=== PATIENT | female | born 1995 | race Caucasian/White ===

== ENCOUNTER 2021-08-16 03:23 | Observation (INO) | payer OTHER, MEDICAID ==
[2021-08-16 04:14] VITALS: O2SAT 98
[2021-08-16 05:25] VITALS: BP 133/73
[2021-08-16 05:26] VITALS: PULSE 95
== END 2021-08-16 05:00 | disposition home or self-care (01) ==
LOC: OB 03:23
PROVIDERS: ADMIT Obstetrics & Gynecology; ATTEND Obstetrics & Gynecology
DX: Z34.03 Encounter for supervision of normal first pregnancy, third trimester (principal); Z3A.37 37 weeks gestation of pregnancy
CPT/HCPCS: G0378

== ENCOUNTER 2021-08-16 17:34 | Inpatient (IN) | payer OTHER, MEDICAID ==
[2021-08-16] MEDS ORDERED: XYLOCAINE 1% HCL 20 ML MDV IJ PRN (18:57)
[2021-08-16] MEDS ORDERED: PITOCIN 30 UNITS/ LR 500 ML 30 UNITS/500 ML PLAST..BAG IV SCH (19:00)
[2021-08-16 19:14] LABS: Absolute Neutrophil Ct (ANC) 11.29 (1.4-6.9); Basophil (Absolute #) 0.02 (0-0.4); Eosinophil % 0.1 % (0.00-5.0); Eosinophil (Absolute #) 0.01 (0-0.5); Hematocrit 32.4 % (35-47); Hemoglobin 9.2 gm/dl (12.0-16.0); Lymphocyte (Absolute #) 1.08 (1.0-4.6); Lymphocytes % 8.3 % (24.0-44.0); Mean Cell Volume 71.2 fl (78-100); Mean Corpuscular Hemoglobin 20.2 pg (26-32); Mean Corpuscular Hgb Concent. 28.4 g/dl (32-36); Monocyte (Absolute #) 0.58 (0.0-1.3); Monocytes % 4.5 % (0.0-12.0); Neutrophil % 86.9 % (36.0-66.0); Platelet Count 215 K/mm3 (150-450); Red Blood Count 4.55 M/mm3 (4.1-5.4); Red Cell Distribution Width 19.2 % (11.5-14.0)
[2021-08-16 19:29] LABS: Amphetamine,Urine NEGATIVE (NEGATIVE); Barbiturate,Urine NEGATIVE (NEGATIVE); Benzodiazepine,Urine NEGATIVE (NEGATIVE); Cocaine,Urine NEGATIVE (NEGATIVE); Methadone,Urine NEGATIVE (NEGATIVE); Opiate,Urine NEGATIVE (NEGATIVE); PCP,Urine NEGATIVE (NEGATIVE); THC,Urine NEGATIVE (NEGATIVE)
--- NOTE | 2021-08-16 20:02 | XRAY ---
Exam: OB follow-up ultrasound from 08/16/2021. Comparison: OB ultrasound greater than 14 weeks from 04/20/2021. Indication: weight. Findings: Transabdominal scans reveal a single live intrauterine fetus in the cephalic lie. cardiac activity measured 133 beats per minute. The placenta is partially seen and appears to be anterior, as noted on the prior exam from 04/20/2021. The amniotic fluid index measures 18.45 cm which is within normal limits. biometry: The biparietal diameter measures 9.32 cm consistent with a gestational age of 37 weeks, 6 days. Head circumference measures 33.48 cm consistent with a gestational age of 38 weeks, 2 days. The abdominal circumference measures 34.52 cm consistent with a gestational age of 38 weeks, 3 days. The femur length measures 7.35 cm consistent with a gestational age of 37 weeks, 4 days. Average gestational age based on all of the above measurements is 38 weeks, 0 days plus or -2 weeks, 5 days yielding an estimated due date of 08/30/2021. This is 4 days behind that anticipated by the prior OB ultrasound from 04/20/2021 and is within normal range of variability. Estimated due date by dates is 09/03/2021. Estimated weight is 3412 g plus or -511.84 g (7 pounds, 8 oz.+ or -1 pound, 2 ounces). This places the fetus in the 77.1 percentile. size ratios are all within normal limits. The maternal cervical canal was not measured by the radiologic technologist chief. Impression: 1. biometry measurements suggest a gestational age of 38 weeks, 0 days plus or -2 weeks, 5 days which is only 4 days behind that anticipated by the prior OB ultrasound from 04/20/2021. See above. 2. Estimated weight is 3412 g plus or -511.84 g (7 pounds, 8 oz.+ or -1 pound, 2 ounces) placing the fetus in the 77.1 percentile. 3. The placenta is partially seen and again appears to be anterior. 4. The fetus is in the cephalic lie and demonstrates a heart rate of 133 bpm. 5. Amniotic fluid index measures 18.45 cm which is within normal limits.
[2021-08-16] MEDS: Lactated Ringers 1,000 ML IV SCH (20:20)
[2021-08-16] MEDS ORDERED: Ephedrine Sulfate 50 MG/ML IV PRN (20:25)
[2021-08-16] MEDS ORDERED: Lactated Ringers 1,000 ML IV ONE (20:25)
[2021-08-16] MEDS ORDERED: FENTANYL 2 MCG-BUPIV 0.125%-NS 250 ML Epidur 250 ML EPIDURAL SCH (20:30)
[2021-08-16] MEDS ORDERED: Pepcid 20 MG PO ONE (22:00)
[2021-08-16] MEDS ORDERED: Ambien 5 MG Tablet PO PRN (22:55)
[2021-08-17] MEDS: Lactated Ringers 1,000 ML IV SCH ×2 (01:22→04:41)
[2021-08-17 04:08] LABS: Slide Review 1 YES
[2021-08-17] MEDS ORDERED: Lactated Ringers 1,000 ML IV ONE (07:56)
[2021-08-17] MEDS ORDERED: TRANDATE 20 MG/4 ML SYRINGE IV ONE (07:56)
[2021-08-17] MEDS ORDERED: Pitocin 10 UNITS/ML IV ONE (07:56)
[2021-08-17] MEDS ORDERED: Versed 2 MG/2 ML Injection IV ONE (07:56)
[2021-08-17] MEDS ORDERED: Marcaine 0.5%/Epinephrine 10 ML IJ ONE (07:56)
[2021-08-17] MEDS ORDERED: SUBLIMAZE 100 MCG/2 ML IV ONE (07:56)
[2021-08-17] MEDS ORDERED: Astramorph-Pf 5 MG/10 ML IJ ONE (07:56)
[2021-08-17] MEDS ORDERED: Marcaine MPF 0.25% 30 ML EPIDURAL ONE (08:20)
[2021-08-17] MEDS ORDERED: Dermoplast Spray TP PRN (08:23)
[2021-08-17] MEDS ORDERED: LANSINOH 40 GM TOP PRN (08:23)
[2021-08-17] MEDS ORDERED: TUCKS TP PRN (08:23)
[2021-08-17] MEDS ORDERED: Sensorcaine 0.25% 10 ML EPIDURAL PRN (08:25)
[2021-08-17] MEDS ORDERED: PERCOCET TABLET 5/325MG PO PRN (10:03)
[2021-08-17] MEDS ORDERED: Narcan 0.4 MG/ML IV PRN (10:03)
[2021-08-17] MEDS ORDERED: MORPHINE SULFATE 2 MG INJ IV PRN (10:03)
[2021-08-17] MEDS ORDERED: Zofran 4 MG/2 ML VIAL IV PRN (10:03)
[2021-08-17] MEDS ORDERED: CLARITIN 10 MG PO PRN (10:03)
[2021-08-17] MEDS ORDERED: HOLD NARCOTIC ANALGESICS AND SEDATIVES X24 HR MC PRN (10:03)
[2021-08-17] MEDS ORDERED: BENADRYL 50 MG/ML IV PRN (10:03)
[2021-08-17] MEDS ORDERED: Nubain 10 MG/ML IV PRN (10:03)
[2021-08-17] MEDS ORDERED: DEMEROL 50 MG IV PRN (10:03)
[2021-08-17] MEDS ORDERED: KEFZOL 1 GM** 3 G in Sodium Chloride 0.9% 50 ML 50 ML IV SCH (10:15)
[2021-08-17] MEDS ORDERED: Reglan 10 MG/2 ML IV SCH (10:15)
[2021-08-17] MEDS ORDERED: Pepcid 20 MG VIAL IV SCH (10:15)
[2021-08-17] MEDS ORDERED: SOD CITRATE-CITRIC ACID SOLN PO SCH (10:15)
[2021-08-17] MEDS ORDERED: Dextrose 5%-Lr IV Solution 1000 ML 1,000 ML IV SCH (10:30)
[2021-08-17] MEDS ORDERED: Zithromax 500 MG/ 250 ML NaCl Premix 500 MG/250 ML IVPB IV SCH (10:30)
[2021-08-17 10:36] LABS: INR 1.01 (0.8-3.0); PROTIME 11.9 SECONDS (9.4-12.5)
[2021-08-17 10:39] LABS: PTT 24.5 SECONDS (25.1-36.5)
[2021-08-17 18:18] LABS: Hematocrit 25.5 % (35-47); Hemoglobin 7.2 gm/dl (12.0-16.0); Mean Cell Volume 72.4 fl (78-100); Mean Corpuscular Hemoglobin 20.5 pg (26-32); Mean Corpuscular Hgb Concent. 28.2 g/dl (32-36); Mean Platelet Volume 11.8 fl (7.5-11.0); Platelet Count 219 K/mm3 (150-450); Red Blood Count 3.52 M/mm3 (4.1-5.4); Red Cell Distribution Width 18.9 % (11.5-14.0); White Blood Count 21.6 K/mm3 (4.0-10.5)
[2021-08-17] MEDS: KEFZOL 1 GM** 3 G in Sodium Chloride 0.9% 50 ML 50 ML IV SCH (19:26)
[2021-08-17] MEDS: Sodium Chloride 0.9% 1000 ML 1,000 ML IV SCH (20:10)
[2021-08-17] MEDS: TYLENOL EXTRA STRENGTH 500 MG PO PRN (20:41)
[2021-08-17 21:29] LABS: Slide Review YES
[2021-08-17] MEDS ORDERED: Docusate Sodium 100 MG ONE (22:58)
[2021-08-17] MEDS: Docusate Sodium 100 MG PO SCH (22:59)
[2021-08-18] MEDS ORDERED: Lactated Ringers 1,000 ML IV ONE (00:16)
[2021-08-18 01:43] LABS: Hematocrit 29.8 % (35-47); Hemoglobin 8.9 gm/dl (12.0-16.0); Mean Cell Volume 75.8 fl (78-100); Mean Corpuscular Hemoglobin 22.6 pg (26-32); Mean Corpuscular Hgb Concent. 29.9 g/dl (32-36); Mean Platelet Volume 10.4 fl (7.5-11.0); Platelet Count 165 K/mm3 (150-450); Red Blood Count 3.93 M/mm3 (4.1-5.4); White Blood Count 18.1 K/mm3 (4.0-10.5)
[2021-08-18] MEDS: KEFZOL 1 GM** 3 G in Sodium Chloride 0.9% 50 ML 50 ML IV SCH (04:00)
[2021-08-18 06:25] LABS: ALBUMIN 2.4 g/dL (3.5-5.0); ALKALINE PHOSPHATASE 273 U/L (38-126); ANION GAP 8.1 MEQ/L (5-15); BLOOD UREA NITROGEN 11 mg/dL (7-17); CHLORIDE 103 mmol/L (98-107); Carbon Dioxide 24 mmol/L (22-30); Creatinine 1 0.81 mg/dL (0.52-1.04); EST GLOMERULAR FILTRATION RATE > 60.0 ML/MIN; Glucose 102 mg/dL (74-106); Potassium 3.9 mmol/L (3.5-5.1); SGOT/AST 41 U/L (14-36); SGPT/ALT 14 U/L (0-35); SODIUM 131 mmol/L (137-145)
[2021-08-18 06:28] LABS: Absolute Neutrophil Ct (ANC) 13.99 (1.4-6.9); Basophil (Absolute #) 0.01 (0-0.4); Eosinophil % 0.2 % (0.00-5.0); Eosinophil (Absolute #) 0.03 (0-0.5); Hematocrit 28.2 % (35-47); Hemoglobin 8.6 gm/dl (12.0-16.0); Lymphocytes % 8.9 % (24.0-44.0); Mean Cell Volume 74.8 fl (78-100); Mean Corpuscular Hemoglobin 22.8 pg (26-32); Mean Corpuscular Hgb Concent. 30.5 g/dl (32-36); Monocytes % 7.7 % (0.0-12.0); Neutrophil % 83.1 % (36.0-66.0); Platelet Count 175 K/mm3 (150-450); Red Blood Count 3.77 M/mm3 (4.1-5.4); Red Cell Distribution Width 21.2 % (11.5-14.0); White Blood Count 16.8 K/mm3 (4.0-10.5)
--- NOTE | 2021-08-18 07:36 | PCM.NOTE ---
Date and Time: 08/18/21 0733 Subjective Assessment: pod 1 sp csection pt resting in bed and doing well. ambulating and tolerating diet vss afebrile abd; soft incision with dressing intact with minimal soiling uterus; firm lochia; mild hgb; 8.6 a/p sp csection pod 1 will repeat cbc at noon today encourage ambulation OBJECTIVE DATA Vital Signs: Vital Signs - 24 hr Temp Pulse Resp BP BP Pulse Ox 08/18/21 06:55 99 H 94 L 08/18/21 06:00 100 08/18/21 05:00 96 08/18/21 04:00 98.6 F 108 H 18 134/72 99 08/18/21 03:00 100 08/18/21 02:00 100 08/18/21 01:00 98.4 F 104 H 18 141/63 100 08/18/21 00:00 98.7 F 98 H 18 141/67 100 08/17/21 23:00 100 08/17/21 22:00 100 08/17/21 21:00 100 08/17/21 20:00 98.8 F 99 H 20 137/68 100 08/17/21 19:33 98.6 F 20 L 20 129/76 100 08/17/21 19:00 100 08/17/21 18:00 100 08/17/21 17:00 100 08/17/21 16:15 98.4 F 95 H 18 123/59 100 08/17/21 16:00 100 08/17/21 15:45 98.4 F 88 18 122/58 100 08/17/21 15:30 98.4 F 107 H 18 121/58 100 08/17/21 15:00 98.4 F 106 H 18 120/57 99 08/17/21 14:45 98.7 F 106 H 20 106/55 100 08/17/21 14:30 98.7 F 101 H 20 120/55 100 08/17/21 14:15 98.7 F 113 H 20 120/55 100 08/17/21 14:00 98.7 F 93 H 18 141/74 100 08/17/21 11:10 98.7 F 106 H 20 100 08/17/21 10:31 98.7 F 94 H 20 134/63 100 08/17/21 10:15 98.7 F 92 H 20 132/67 08/17/21 10:00 98.7 F 92 H 20 143/85 08/17/21 09:45 98.7 F 102 H 20 116/54 08/17/21 09:30 98.7 F 85 20 133/60 08/17/21 09:15 98.7 F 94 H 20 140/69 100 08/17/21 09:00 98.7 F 88 20 123/59 100 08/17/21 08:45 98.7 F 86 20 134/65 100 08/17/21 08:30 98.7 F 100 H 20 125/61 100 08/17/21 08:15 98.7 F 81 20 135/68 100 08/17/21 08:00 98.7 F 109 H 20 140/66 96 08/17/21 07:45 98.7 F 109 H 20 161/61 96 Pain Assessment - Last Documented Pain Intensity [Bilateral 7 Lower] Pain Intensity [Anterior/ 7 Posterior] Pain Intensity 0 Pain Scale Used 0-10 Pain Scale Intake and Output: Intake & Output 08/15/21 08/16/21 08/17/21 08/18/21 11:59 11:59 11:59 11:59 Intake Total 3577 3950 Output Total 500 2475 Balance 3077 1475 Weight 127.006 kg Lab Results: Lab Results-Last 24 Hours 08/16/21 08/16/21 08/17/21 Range/Units 11:31 11:31 10:27 WBC (4.0-10.5) K/mm3 RBC (4.1-5.4) M/mm3 Hgb (12.0-16.0) gm/dl Hct (35-47) % MCV (78-100) fl MCH (26-32) pg MCHC (32-36) g/dl RDW (11.5-14.0) % Plt Count (150-450) K/mm3 MPV (7.5-11.0) fl Gran % (36.0-66.0) % Eos # (Auto) (0-0.5) Absolute Lymphs (auto) (1.0-4.6) Absolute Monos (auto) (0.0-1.3) Lymphocytes % (24.0-44.0) % Monocytes % (0.0-12.0) % Eosinophils % (0.00-5.0) % Basophils % (0.0-0.4) % Absolute Granulocytes (1.4-6.9) Basophils # (0-0.4) PT 11.9 (9.4-12.5) SECONDS INR 1.01 (0.8-3.0) APTT 24.5 L (25.1-36.5) SECONDS Sodium (137-145) mmol/L Potassium (3.5-5.1) mmol/L Chloride (98-107) mmol/L Carbon Dioxide (22-30) mmol/L Anion Gap (5-15) MEQ/L BUN (7-17) mg/dL Creatinine (0.52-1.04) mg/dL Estimated GFR ML/MIN Glucose (74-106) mg/dL Calcium (8.4-10.2) mg/dL Total Bilirubin (0.2-1.3) mg/dL AST (14-36) U/L ALT (0-35) U/L Alkaline Phosphatase (38-126) U/L Serum Total Protein (6.3-8.2) g/dL Albumin (3.5-5.0) g/dL Slides for Path Review Crossmatch COMPATIBLE COMPATIBLE (COMPATIBLE) 08/17/21 08/18/21 08/18/21 Range/Units 18:11 01:40 06:14 WBC 21.6 H 18.1 H 16.8 H (4.0-10.5) K/mm3 RBC 3.52 L 3.93 L 3.77 L (4.1-5.4) M/mm3 Hgb 7.2 L D 8.9 L D 8.6 L (12.0-16.0) gm/dl Hct 25.5 L 29.8 L 28.2 L (35-47) % MCV 72.4 L 75.8 L 74.8 L (78-100) fl MCH 20.5 L 22.6 L 22.8 L (26-32) pg MCHC 28.2 L 29.9 L 30.5 L (32-36) g/dl RDW 18.9 H 22.0 H 21.2 H (11.5-14.0) % Plt Count 219 165 175 (150-450) K/mm3 MPV 11.8 H 10.4 11.0 (7.5-11.0) fl Gran % 83.1 H (36.0-66.0) % Eos # (Auto) 0.03 (0-0.5) Absolute Lymphs (auto) 1.50 (1.0-4.6) Absolute Monos (auto) 1.30 (0.0-1.3) Lymphocytes % 8.9 L (24.0-44.0) % Monocytes % 7.7 (0.0-12.0) % Eosinophils % 0.2 (0.00-5.0) % Basophils % 0.1 (0.0-0.4) % Absolute Granulocytes 13.99 H (1.4-6.9) Basophils # 0.01 (0-0.4) PT (9.4-12.5) SECONDS INR (0.8-3.0) APTT (25.1-36.5) SECONDS Sodium (137-145) mmol/L Potassium (3.5-5.1) mmol/L Chloride (98-107) mmol/L Carbon Dioxide (22-30) mmol/L Anion Gap (5-15) MEQ/L BUN (7-17) mg/dL Creatinine (0.52-1.04) mg/dL Estimated GFR ML/MIN Glucose (74-106) mg/dL Calcium (8.4-10.2) mg/dL Total Bilirubin (0.2-1.3) mg/dL AST (14-36) U/L ALT (0-35) U/L Alkaline Phosphatase (38-126) U/L Serum Total Protein (6.3-8.2) g/dL Albumin (3.5-5.0) g/dL Slides for Path Review YES Crossmatch (COMPATIBLE) 08/18/21 Range/Units 06:14 WBC (4.0-10.5) K/mm3 RBC (4.1-5.4) M/mm3 Hgb (12.0-16.0) gm/dl Hct (35-47) % MCV (78-100) fl MCH (26-32) pg MCHC (32-36) g/dl RDW (11.5-14.0) % Plt Count (150-450) K/mm3 MPV (7.5-11.0) fl Gran % (36.0-66.0) % Eos # (Auto) (0-0.5) Absolute Lymphs (auto) (1.0-4.6) Absolute Monos (auto) (0.0-1.3) Lymphocytes % (24.0-44.0) % Monocytes % (0.0-12.0) % Eosinophils % (0.00-5.0) % Basophils % (0.0-0.4) % Absolute Granulocytes (1.4-6.9) Basophils # (0-0.4) PT (9.4-12.5) SECONDS INR (0.8-3.0) APTT (25.1-36.5) SECONDS Sodium 131 L (137-145) mmol/L Potassium 3.9 (3.5-5.1) mmol/L Chloride 103 (98-107) mmol/L Carbon Dioxide 24 (22-30) mmol/L Anion Gap 8.1 (5-15) MEQ/L BUN 11 (7-17) mg/dL Creatinine 0.81 (0.52-1.04) mg/dL Estimated GFR > 60.0 ML/MIN Glucose 102 (74-106) mg/dL Calcium 8.0 L (8.4-10.2) mg/dL Total Bilirubin 0.80 (0.2-1.3) mg/dL AST 41 H (14-36) U/L ALT 14 (0-35) U/L Alkaline Phosphatase 273 H (38-126) U/L Serum Total Protein 5.0 L (6.3-8.2) g/dL Albumin 2.4 L (3.5-5.0) g/dL Slides for Path Review Crossmatch (COMPATIBLE) Radiology Exams: Radiology Procedures Category Date Time Status OB FOLLOW UP PER FETUS [US] Stat Exams 08/16/21 19:31 Completed Multi-Disciplinary Progress Notes: Multi-Disciplinary Progress Notes 08/17/21 14:11 Respiratory Note by Tanya Medina Baby delivered by . Baby crying from and pinked up. Baby dried and stimulated under the warmer. Initialized on 08/17/21 14:11 - END OF NOTE Assessment/Plan (1) Arrest of descent, delivered, current hospitalization Current Visit: Yes Status: Acute Code(s): O62.1 - SECONDARY UTERINE INERTIA (2) History of primary section Current Visit: Yes Status: Acute Code(s): Z98.891 - HISTORY OF UTERINE SCAR FROM PREVIOUS SURGERY (3) Status post primary low transverse section Current Visit: Yes Status: Acute Code(s): Z98.891 - HISTORY OF UTERINE SCAR FROM PREVIOUS SURGERY (4) Postoperative anemia due to acute blood loss Current Visit: Yes Status: Acute Code(s): D62 - ACUTE POSTHEMORRHAGIC ANEMIA
[2021-08-18] MEDS ORDERED: OFIRMEV 100 ML IV ONE (07:56)
[2021-08-18] MEDS: Docusate Sodium 100 MG PO SCH (08:01)
[2021-08-18] MEDS: ENOXAPARIN SODIUM SQ SCH (08:01)
[2021-08-18] MEDS ORDERED: Adacel Vial IM ONE (08:23)
[2021-08-18] MEDS ORDERED: Sodium Chloride 0.9% 1000 ML 1,000 ML IV SCH (08:30)
[2021-08-18] MEDS: Sodium Chloride 0.9% 1000 ML 1,000 ML IV SCH (09:24)
[2021-08-18] MEDS: FEOSOL 325 MG PO SCH (09:25)
[2021-08-18] MEDS ORDERED: FERREX 150 PO SCH (10:00)
--- NOTE | 2021-08-18 10:43 | OP ---
SURGERY DATE/TIME: 08/17/2021 1201 PREOPERATIVE DIAGNOSIS: Intrauterine at 37 weeks and 4 days gestation with arrest of descent and dilatation in labor and chronic hypertension. POSTOPERATIVE DIAGNOSIS: Intrauterine at 37 weeks and 4 days gestation with arrest of descent and dilatation in labor and chronic hypertension. PROCEDURE: Primary section, low flap transverse uterine incision, Pfannenstiel skin incision. SURGEON: Lei Junior D.O. PLANT SUPERVISOR: Troy Mark, surgical services coordinator. ANESTHESIA: Epidural. ESTIMATED BLOOD LOSS: 400 cc. COMPLICATIONS: None. INDICATIONS: The risks, benefits, indications and alternatives of the procedure were reviewed with the patient prior to procedure. The patient understood the risk of infection, bleeding, bowel injury, bladder injury, ureteral injury, uterine perforation, pelvic infection and thromboembolic disorder associated with the surgery and desires to have the surgery as a possible means to alleviate her current medical condition. DESCRIPTION OF PROCEDURE AND FINDINGS: At this point the patient is taken to the operating room where her epidural anesthesia was found to be adequate. She was then prepared and draped in normal sterile fashion in the dorsal supine position with a leftward tilt. A Pfannenstiel skin incision is made with a scalpel and carried through to the underlying layer of the fascia with Bovie. The fascia was then incised in the midline and the incision extended laterally with Rolon scissors. The superior aspect of the fascial incision was then grasped John clamps elevated and the underlying rectus muscles dissected off bluntly. Attention is then turned to the inferior aspect of this incision which in similar fashion was grasped, tented up with John clamps and the rectus muscles dissected off bluntly. The rectus muscles were then at the midline and the peritoneum identified tented up and entered sharply with Metzenbaum scissors. The peritoneal incision was then extended superiorly and inferiorly with good visualization of the bladder. The bladder blade was then inserted and the vesicouterine peritoneum identified, grasped with pickups and entered sharply with Metzenbaum scissors. This incision was then extended laterally and bladder flap created digitally. The bladder blade was then reinserted and the lower uterine segment incised in transverse fashion with a scalpel. The uterine incision was then extended laterally with Rolon scissors. The bladder blade was then removed. The 's head was delivered atraumatically. The nose and mouth were suctioned with bulb suction and the cord clamped and cut. The infant was then handed off to awaiting nurses. The placenta was then removed manually. The uterus exteriorized and cleared of all clots and debris. The uterine incision was repaired with 1-0 chromic in a running locked fashion. A second layer of the same suture was used to obtain excellent hemostasis. The uterus is then returned to the abdomen. The gutters were cleared of clots and the peritoneal muscle closed in interrupted fashion using 2-0 chromic suture. The fascia was re-approximated with 0 Vicryl in a running fashion. The subcutaneous layer was closed with 3-0 Vicryl suture and the skin was closed with absorbable nancy called INSORB. The patient tolerated the procedure well. Sponge, lap, needle and instrument counts were correct x2. The patient was then taken to the recovery room in stable condition. The patient delivered a live baby boy at 1224 hours, weight of the baby was 10 pounds 2 ounces and 's were 8 at 1 minute and 9 at 5 minutes.
[2021-08-18 12:11] LABS: Slide Review 1 YES
[2021-08-18] MEDS ORDERED: Mylicon 80MG ONE (12:32)
[2021-08-18] MEDS: MOTRIN 400 MG PO PRN (12:36)
[2021-08-18] MEDS ORDERED: Mylicon 80MG PO PRN (12:39)
[2021-08-18 13:11] LABS: Hemoglobin 9.2 gm/dl (12.0-16.0); Mean Cell Volume 75.2 fl (78-100); Mean Corpuscular Hemoglobin 22.3 pg (26-32); Mean Corpuscular Hgb Concent. 29.7 g/dl (32-36); Platelet Count 213 K/mm3 (150-450); Red Blood Count 4.12 M/mm3 (4.1-5.4); Red Cell Distribution Width 21.6 % (11.5-14.0); White Blood Count 18.6 K/mm3 (4.0-10.5)
[2021-08-18 13:33] LABS: ALBUMIN 2.7 g/dL (3.5-5.0); ALKALINE PHOSPHATASE 280 U/L (38-126); ANION GAP 9.8 MEQ/L (5-15); BLOOD UREA NITROGEN 8 mg/dL (7-17); CHLORIDE 104 mmol/L (98-107); Calcium 8.2 mg/dL (8.4-10.2); Carbon Dioxide 26 mmol/L (22-30); Creatinine 1 0.68 mg/dL (0.52-1.04); EST GLOMERULAR FILTRATION RATE > 60.0 ML/MIN; Glucose 107 mg/dL (74-106); Potassium 4.1 mmol/L (3.5-5.1); SGOT/AST 44 U/L (14-36); SGPT/ALT 17 U/L (0-35); SODIUM 135 mmol/L (137-145); Total Protein 5.5 g/dL (6.3-8.2)
[2021-08-18 13:49] LABS: HBsAg Screen Negative (Negative)
[2021-08-18] MEDS: PIPERACILLIN/TAZOBACTAM 3.375 GM in Sodium Chloride 100ML MINI-BAG PLUS 100 ML IV SCH ×2 (14:20→20:01)
--- NOTE | 2021-08-18 16:20 | PCM.DS ---
Discharge Summary Date of Admission: 08/16/21 17:34 Admitting Physician: MIKI ROLON DO Consults: Consults on Case 08/16/21 20:25 Notify Anesthesia Provider PRN 08/17/21 10:04 Notify Anesthesia Provider PRN Notify Anesthesia Provider ROUTINE Notify Physician OF ADMISSION 08/17/21 16:16 Navigation ONCE Primary Care Provider: GREG MONACO Allergies Allergies No Known Drug Allergies Allergy (Verified 08/16/21 03:45) Hospital Summary - Hospital Course Hospital Course: pt was admitted on august 16 for being in labor at 37 3/7 wks gestation who was scheduled for csection on for suspected macrosomia and chronic htn. pt had sonogram in labor delivery on august 16 while in labor and baby was noted to being about 7 pounds 8 oz. pt progressed to complete dilitation however had an arrest of descent. pt subsequently underwent csection and delivered live baby boy without complication however had an ebl of 1000cc. pt was subsequently transfursed 2 units of prbc upon seeing her hgb to 7.2. posttransfusion hgb 9.0. pt currently feeling well and stable for discharge on august 19. pt given norco for pain management and was advised to fu in office in 2 wks. pt received additional zosyn antibiotic when wbc went to 18.6 secondary to elevated bmi. all questions answered to her satisfaction. - Vitals & Intake/Output Vital Signs: Vital Signs Temperature 98.5 F 08/18/21 14:00 Pulse Rate 110 H 08/18/21 14:00 Respiratory Rate 18 08/18/21 14:00 Blood Pressure 138/71 08/18/21 14:00 O2 Sat by Pulse Oximetry 97 08/18/21 11:00 Intake & Output: Intake & Output 08/16/21 08/17/21 08/18/21 08/19/21 11:59 11:59 11:59 11:59 Intake Total 3577 3950 Output Total 500 3325 Balance 3077 625 Weight 127.006 kg - Lab Result Diagrams: 08/18/21 13:06 08/18/21 13:06 Lab Results-Last 24 Hrs: Lab Results-Last 24 Hours 08/16/21 08/16/21 08/17/21 Range/Units 11:31 11:31 10:27 WBC (4.0-10.5) K/mm3 RBC (4.1-5.4) M/mm3 Hgb (12.0-16.0) gm/dl Hct (35-47) % MCV (78-100) fl MCH (26-32) pg MCHC (32-36) g/dl RDW (11.5-14.0) % Plt Count (150-450) K/mm3 MPV (7.5-11.0) fl Gran % (36.0-66.0) % Eos # (Auto) (0-0.5) Absolute Lymphs (auto) (1.0-4.6) Absolute Monos (auto) (0.0-1.3) Lymphocytes % (24.0-44.0) % Monocytes % (0.0-12.0) % Eosinophils % (0.00-5.0) % Basophils % (0.0-0.4) % Absolute Granulocytes (1.4-6.9) Basophils # (0-0.4) Sodium (137-145) mmol/L Potassium (3.5-5.1) mmol/L Chloride (98-107) mmol/L Carbon Dioxide (22-30) mmol/L Anion Gap (5-15) MEQ/L BUN (7-17) mg/dL Creatinine (0.52-1.04) mg/dL Estimated GFR ML/MIN Glucose (74-106) mg/dL Calcium (8.4-10.2) mg/dL Total Bilirubin (0.2-1.3) mg/dL AST (14-36) U/L ALT (0-35) U/L Alkaline Phosphatase (38-126) U/L Serum Total Protein (6.3-8.2) g/dL Albumin (3.5-5.0) g/dL Hep Bs Antigen Negative (Negative) Slides for Path Review Crossmatch COMPATIBLE COMPATIBLE (COMPATIBLE) 08/17/21 08/18/21 08/18/21 Range/Units 18:11 01:40 06:14 WBC 21.6 H 18.1 H 16.8 H (4.0-10.5) K/mm3 RBC 3.52 L 3.93 L 3.77 L (4.1-5.4) M/mm3 Hgb 7.2 L D 8.9 L D 8.6 L (12.0-16.0) gm/dl Hct 25.5 L 29.8 L 28.2 L (35-47) % MCV 72.4 L 75.8 L 74.8 L (78-100) fl MCH 20.5 L 22.6 L 22.8 L (26-32) pg MCHC 28.2 L 29.9 L 30.5 L (32-36) g/dl RDW 18.9 H 22.0 H 21.2 H (11.5-14.0) % Plt Count 219 165 175 (150-450) K/mm3 MPV 11.8 H 10.4 11.0 (7.5-11.0) fl Gran % 83.1 H (36.0-66.0) % Eos # (Auto) 0.03 (0-0.5) Absolute Lymphs (auto) 1.50 (1.0-4.6) Absolute Monos (auto) 1.30 (0.0-1.3) Lymphocytes % 8.9 L (24.0-44.0) % Monocytes % 7.7 (0.0-12.0) % Eosinophils % 0.2 (0.00-5.0) % Basophils % 0.1 (0.0-0.4) % Absolute Granulocytes 13.99 H (1.4-6.9) Basophils # 0.01 (0-0.4) Sodium (137-145) mmol/L Potassium (3.5-5.1) mmol/L Chloride (98-107) mmol/L Carbon Dioxide (22-30) mmol/L Anion Gap (5-15) MEQ/L BUN (7-17) mg/dL Creatinine (0.52-1.04) mg/dL Estimated GFR ML/MIN Glucose (74-106) mg/dL Calcium (8.4-10.2) mg/dL Total Bilirubin (0.2-1.3) mg/dL AST (14-36) U/L ALT (0-35) U/L Alkaline Phosphatase (38-126) U/L Serum Total Protein (6.3-8.2) g/dL Albumin (3.5-5.0) g/dL Hep Bs Antigen (Negative) Slides for Path Review YES YES Crossmatch (COMPATIBLE) 08/18/21 08/18/2122 Range/Units 06:14 13:06 13:06 WBC 18.6 H (4.0-10.5) K/mm3 RBC 4.12 (4.1-5.4) M/mm3 Hgb 9.2 L (12.0-16.0) gm/dl Hct 31.0 L (35-47) % MCV 75.2 L (78-100) fl MCH 22.3 L (26-32) pg MCHC 29.7 L (32-36) g/dl RDW 21.6 H (11.5-14.0) % Plt Count 213 (150-450) K/mm3 MPV 11.0 (7.5-11.0) fl Gran % (36.0-66.0) % Eos # (Auto) (0-0.5) Absolute Lymphs (auto) (1.0-4.6) Absolute Monos (auto) (0.0-1.3) Lymphocytes % (24.0-44.0) % Monocytes % (0.0-12.0) % Eosinophils % (0.00-5.0) % Basophils % (0.0-0.4) % Absolute Granulocytes (1.4-6.9) Basophils # (0-0.4) Sodium 131 L 135 L (137-145) mmol/L Potassium 3.9 4.1 (3.5-5.1) mmol/L Chloride 103 104 (98-107) mmol/L Carbon Dioxide 24 26 (22-30) mmol/L Anion Gap 8.1 9.8 (5-15) MEQ/L BUN 11 8 (7-17) mg/dL Creatinine 0.81 0.68 (0.52-1.04) mg/dL Estimated GFR > 60.0 > 60.0 ML/MIN Glucose 102 107 H (74-106) mg/dL Calcium 8.0 L 8.2 L (8.4-10.2) mg/dL Total Bilirubin 0.80 0.60 (0.2-1.3) mg/dL AST 41 H 44 H (14-36) U/L ALT 14 17 (0-35) U/L Alkaline Phosphatase 273 H 280 H (38-126) U/L Serum Total Protein 5.0 L 5.5 L (6.3-8.2) g/dL Albumin 2.4 L 2.7 L (3.5-5.0) g/dL Hep Bs Antigen (Negative) Slides for Path Review Crossmatch (COMPATIBLE) - Radiology Exams Ordered Rad Exams-Entire Visit: Radiology Procedures Category Date Time Status OB FOLLOW UP PER FETUS [US] Stat Exams 08/16/21 19:31 Completed - Procedures and Test Procedures and Tests throughout Hospitalization: Therapy Orders & Screens 08/17/21 14:16 Standby STAT Comment: Final Diagnosis/Problem List - Final Discharge Diagnosis/Problem (1) Arrest of descent, delivered, current hospitalization Current Visit: Yes Status: Acute Code(s): O62.1 - SECONDARY UTERINE INERTIA (2) History of primary section Current Visit: Yes Status: Acute Code(s): Z98.891 - HISTORY OF UTERINE SCAR FROM PREVIOUS SURGERY (3) Status post primary low transverse section Current Visit: Yes Status: Acute Code(s): Z98.891 - HISTORY OF UTERINE SCAR FROM PREVIOUS SURGERY (4) Postoperative anemia due to acute blood loss Current Visit: Yes Status: Acute Code(s): D62 - ACUTE POSTHEMORRHAGIC ANEMIA - Discharge Disposition: Home, Self-Care Condition: Stable Prescriptions: New Hydrocodone/Acetaminophen [Hydrocodone-Acetamin 5-325 mg] 1 tab PO Q6HPRN PRN #30 tablet MDD 4 PRN Reason: Pain No Action Fluoxetine HCl 40 mg PO DAILY Follow up with: GREG MONACO MD [Primary Care Provider] - MIKI ROLON DO [ACTIVE STAFF] - 2 weeks (keep incision clean and dry no heavy lifting)
[2021-08-18] MEDS ORDERED: Prozac 20 MG PO SCH (22:00)
[2021-08-19] MEDS: MOTRIN 400 MG PO PRN ×2 (02:06→09:03)
[2021-08-19] MEDS: TYLENOL EXTRA STRENGTH 500 MG PO PRN (02:07)
[2021-08-19] MEDS: Docusate Sodium 100 MG PO SCH (05:35)
[2021-08-19] MEDS: FEOSOL 325 MG PO SCH (05:36)
[2021-08-19 07:05] LABS: Hemoglobin 8.3 gm/dl (12.0-16.0); Mean Cell Volume 76.3 fl (78-100); Mean Corpuscular Hemoglobin 22.6 pg (26-32); Mean Corpuscular Hgb Concent. 29.6 g/dl (32-36); Platelet Count 197 K/mm3 (150-450); Red Blood Count 3.67 M/mm3 (4.1-5.4); Red Cell Distribution Width 21.6 % (11.5-14.0); White Blood Count 17.2 K/mm3 (4.0-10.5)
[2021-08-19] MEDS: ENOXAPARIN SODIUM SQ SCH (09:00)
[2021-08-19 10:27] VITALS: BP 137/81; PULSE 101; O2SAT 98
== END 2021-08-19 09:40 | disposition home or self-care (01) | DRG 787 ==
LOC: OB 17:34 → OBSVTOIN 17:34 → UNDOADMOB 17:34 → MED SURG 17:34
PROVIDERS: ADMIT Obstetrics & Gynecology; ATTEND Obstetrics & Gynecology
PROC: 10D00Z1 Extraction of Products of Conception, Low, Open Approach (ICD-10-PCS; principal; 2021-08-17)
DX: O62.1 Secondary uterine inertia (principal); O10.92 Unspecified pre-existing hypertension complicating childbirth; D62 Acute posthemorrhagic anemia; O66.2 Obstructed labor due to unusually large fetus; Z37.0 Single live birth; Z3A.37 37 weeks gestation of pregnancy; Z20.828 Contact with and (suspected) exposure to other viral communicable diseases
CPT/HCPCS: 36415; 36430; 59510; 64488; 76816; 76937; 76942; 80053; 80307; 85025; 85027; 85610; 85730; 86922; 87340; 90472; 90715; 94799; 96372; J0456; J0690; J1650; J2250; J2274; J2590; J3010; L0625; P9016; A9270-GY